=== PATIENT | male | born 1980 | race Caucasian/White ===

== ENCOUNTER 2020-11-11 12:31 | Outpatient (CLI) | payer BC, SELFPAY ==
[2020-11-11 12:47] LABS: Basophils Percent Auto 0.6 % (0.2-1.2); Eosinophils Absolute Auto 0.1 K/mm3 (0-0.3); Eosinophils Percent Auto 1.3 % (0-4.4); Hematocrit 45.8 % (42.0-52.0); Hemoglobin 15.8 g/dL (14.0-18.0); Immature Granulocyte Absolute 0.01 K/mm3 (0.00-0.031); Immature Granulocyte Percent A 0.1 % (0-0.5); Lymphocytes Absolute Auto 1.91 K/mm3 (0.9-3.2); Lymphocytes Percent Auto 27.1 % (18.3-44.2); Mean Corpuscular HGB Conc 34.5 g/dl (32-36); Mean Corpuscular Hemoglobin 29.2 pg (26-34); Mean Corpuscular Volume 84.5 fl (80-100); Monocytes Absolute Auto 0.4 K/mm3 (0.1-0.6); Monocytes Percent Auto 5.4 % (2.6-8.5); Neutrophils Absolute Auto 4.6 K/mm3 (1.3-6.7); Neutrophils Percent Auto 65.5 % (45.5-73.1); Platelet Count Result 252 k/mm3 (150-375); Red Blood Count 5.42 M/mm3 (4.6-6.20)
[2020-11-11 12:52] LABS: Blood Urea Nitrogen 16 mg/dL (8-26); Carbon Dioxide 29 mmol/L (22-30); Chloride 104 mmol/L (98-109); Estimated Glomerular Filt Rate > 60; Glucose 101 mg/dL (70-105); Potassium 3.9 mmol/L (3.5-4.9); Sodium 141 mmol/L (138-146)
[2020-11-11 16:46] LABS: Alanine Aminotransferase 32 U/L (4-50); Albumin Level 4.3 g/dL (3.5-5.1); Alkaline Phosphatase 95 U/L (38-126); Anion Gap 5 mmol/L (8-16); Aspartate Amino Transferase 24 U/L (17-59); Bilirubin,Total 0.5 mg/dL (0.2-1.3); Blood Urea Nitrogen 16 mg/dL (9-20); Calcium 9.5 mg/dL (8.4-10.2); Carbon Dioxide 28 mmol/L (22-30); Chloride 106 mmol/L (98-107); Estimated Glomerular Filt Rate > 60; Glucose 101 mg/dL (75-110); Potassium 4.3 mmol/L (3.4-5.0); Sodium 139 mmol/L (137-145)
== END 2020-11-11 12:32 | disposition home or self-care (01) ==
LOC: ANHLAB 12:33
PROVIDERS: Visit Provider Internal Medicine Hematology & Oncology
DX: D75.1 Secondary polycythemia (principal)
CPT/HCPCS: 36415; 80048; 80053; 85025

== ENCOUNTER 2023-12-14 20:51 | Emergency (ER) | payer BC, SELFPAY ==
[2023-12-14 20:54] VITALS: BP 152/104; PULSE 80; RESP 18; TEMP 36.1; O2SAT 96
--- NOTE | 2023-12-14 21:53 | ED.WOUNDLAC ---
HPI - Wound/Laceration General Chief Complaint: Wound/Laceration Stated Complaint: tongue injury Time Seen by Provider: 12/14/23 20:56 Source: patient Mode of arrival: ambulatory Limitations: no limitations History of Present Illness HPI narrative: this is a 43 year male with a history of polycythemia and is currently taking an aspirin while eating this evening bit his tongue and has a an area on the mid tongue that would stop bleeding. Otherwise no other injuries. Onset (ago): hour(s) Location: other ( bit his tongue) Place: home Related Data Home Medications Medication Instructions Recorded Confirmed cetirizine 10 mg tablet (Allergy 10 mg PO DAILY PRN allergies 08/25/22 12/14/23 Relief (cetirizine)) needle (disp) 18 G 18 gauge x 1 12/28/22 12/14/2309/26 (BD PrecisionGlide Non-Sterile) aspirin 81 mg tablet,delayed 81 mg PO DAILY 01/26/23 12/14/23 release (Adult Aspirin Regimen) Allergies Allergy/AdvReac Type Severity Reaction Status Date / Time No Known Allergies Allergy Verified 12/14/23 21:01 Review of Systems Review of Systems: All systems reviewed & are unremarkable except as noted in HPI and below PMFSH Past Medical History Medical History Secondary polycythemia (2017) Family History Family History Father A-fib Other Heart attack Social History Social History Smoking status: Current every day smoker Smokeless tobacco user: chewing tobacco Alcohol intake: current Alcohol use details: 1-2 times per month Substance use: never Substance use type: does not use Lack of Transportation: No Lack of Food: Never True Current Housing: I Have Housing Concerned About Future Housing: No Difficulty Paying Gas/Electric Bills: No Difficulty Paying for Meds: No Currently Unemployed: No Education: High School Diploma/GED Difficulty w/ Childcare or Family Care: No Exam Const: General: healthy appearing Nutritional Appearance: well nourished Orientation/consciousness: patient oriented x3 Limitations: no limitations HENMT: Head: normal to inspection Other: Small lesion on the anterior tongue currently losing blood Eyes: Conjunctivae: conjunctivae normal Chest: Chest palpation & inspection: normal inspection of the chest Resp: Effort & Inspection: normal respiratory effort Cardio: Rate: regular rate Rhythm: regular rhythm Skin: Wounds: wounds noted Course Course Emergency Course: used ice with gauze and I had patient bite down applying pressure to the anterior tongue and after reassessment currently the tongue lesion has clotted off and currently not bleeding. Vital Signs Vital signs: Vital Signs Temperature 36.1 C L 12/14/23 20:54 Pulse Rate 80 12/14/23 20:54 Respiratory Rate 18 12/14/23 20:54 Blood Pressure 152/104 H 12/14/23 20:54 Pulse Oximetry 96 12/14/23 20:54 Oxygen Delivery Room Air 12/14/23 20:54 Temperature 36.1 C L 12/14/23 20:54 Pulse Rate 80 12/14/23 20:54 Respiratory Rate 18 12/14/23 20:54 Blood Pressure 152/104 H 12/14/23 20:54 Pulse Oximetry 96 12/14/23 20:54 Oxygen Delivery Room Air 12/14/23 20:54 Critical Care Time Critical Care Time Critical Care Time: No Discharge Plan Discharge Clinical Impression: Avulsion of skin Patient Disposition: Home, Self-Care Condition: Stable Instructions: Antibiotic Form, Skin Avulsion (ED) Additional Instructions: Advised patient to hold aspirin times 24hours, and can apply pressure with gauze and ice to anterior tongue should it start to bleed once again. Prescriptions: No Action cetirizine [Allergy Relief (cetirizine)] 10 mg tablet 10 mg PO DAILY PRN (Reason: allergies) aspirin [Adult Aspirin Regimen] 81 mg tablet,delayed release (DR/EC) 81
== END 2023-12-14 22:12 | disposition home or self-care (01) ==
PROVIDERS: Emergency Provider Emergency Medicine; PCP Family Medicine Adolescent Medicine
DX: S01.552A Open bite of oral cavity, initial encounter (principal); F17.220 Nicotine dependence, chewing tobacco, uncomplicated
CPT/HCPCS: 99282

== ENCOUNTER 2024-02-25 15:39 | Emergency (ER) | payer BC, SELFPAY ==
[2024-02-25] VITALS (13 sets, daily range): BP systolic 104–135; BP diastolic 77–102; PULSE 78–97; RESP 10–18; TEMP 35.7–36.6; O2SAT 93–97
--- NOTE | ~2024-02-25 | CT_ITS ---
EXAMINATION: CTA chest PE protocol DATE: 02/25/2024 18:20 INDICATION: Shortness of breath and cough. TECHNIQUE: Computed tomography angiography (CTA) of the chest was performed with 100 mL Omnipaque-350 intravenous contrast timed to evaluate the pulmonary arteries. Coronal maximum intensity projection 3D-reconstructions were created by the technologist. Automated exposure control and iterative reconst ruction technique were employed. The dose-length product was 790.47 mGy-cm. COMPARISON: Chest CT 10/11/2017 FINDINGS: The lungs demonstrate minimal atelectasis. No pleural effusion. The heart size is normal. N o pericardial effusion. There is no pulmonary embolus. There is mild chronic anterior wedging of mult iple vertebral bodies. There is mild thoracic spondylosis. IMPRESSION: 1. No pulmonary embolus. Reviewed, dictated and finalized at location E. IMPRESSION: 1. No pulmonary embolus.
--- NOTE | ~2024-02-25 | XR_ITS ---
EXAMINATION: XR chest 2V DATE: 02/25/2024 16:32 INDICATION: Shortness of breath and cough. TECHNIQUE: Frontal and lateral views of the chest were obtained. COMPARISON: Chest CT 10/11/2017 FINDINGS: There is no pneumonia, pleural effusion, or pneumothorax. The heart size is normal. There i s mild chronic anterior wedging of multiple vertebral arteries. IMPRESSION: 1. No acute cardiopulmonary disease. Reviewed, dictated and finalized at location E.
--- NOTE | 2024-02-25 16:10 | ECG_ITS ---
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 Measurements Intervals [place] Rate: 93 P: 31 [place]: 173 QRS: 7 QRSD: 96 T: 52 QT: 342 QTc: 427 Interpretive Statements SINUS RHYTHM WITH OCCASIONAL SUPRAVENTRICULAR PREMATURE COMPLEXES NONSPECIFIC T-WAVE ABNORMALITY BORDERLINE ECG No previous ECG available for comparison Electronically Signed On 02-26-2024 07:37:14 CDT by Martinez Vallejo M.D.
--- NOTE | 2024-02-25 16:13 | ED.GENADULT ---
HPI - General Adult General Chief complaint: Unspecified Stated complaint: rash; increasing heart rate Time Seen by Provider: 02/25/24 15:57 Source: patient and family Mode of arrival: ambulatory Limitations: no limitations History of Present Illness HPI narrative: Patient is a 43-year-old male with 4 specific complaints. He is having petechia of bilateral lower extremity at the feet, traveler's diarrhea, slightly increased resting heart rate and shortness of breath. He was just vacationing in [place]. No leg swelling or pains. Minimal swelling of the feet with the petechia. No chest pain. As an aside, the patient does have polycythemia vera. He takes aspirin daily. Onset (ago): week(s) (2) Location: left, right and lower extremity ( Bilateral feet petechia while traveling in [place]) Radiation: other ( no pain) Severity: mild Severity scale (1-10): 3 Quality: constant Pain Consistency: other ( no pain) Relieving factors: none Exacerbating factors: none Associated symptoms: nausea/vomiting, shortness of breath and other ( diarrhea since [place]) Treatments prior to arrival: none Related Data Home Medications Medication Instructions Recorded Confirmed propranolol 20 mg tablet 20 mg PO QAM 02/02/24 02/25/24 rimegepant 75 mg disintegrating 75 mg PO ONCE PRN Migraine Headache 02/02/24 02/25/24 tablet (Nurtec ODT) Allergies Allergy/AdvReac Type Severity Reaction Status Date / Time No Known Allergies Allergy Verified 02/02/24 08:11 Review of Systems Review of Systems: All systems reviewed & are unremarkable except as noted in HPI and below Constitutional: Constitutional: Reports no additional constitutional complaints Eyes: Eyes: Reports no additional eye complaints ENT: Reports system reviewed and no additional complaints, except as documented Cardiovascular: Cardiovascular: Reports no additional cardiovascular complaints Respiratory: Respiratory: Reports no additional respiratory complaints Gastrointestinal: Gastrointestinal: Reports no additional gastrointestinal complaints Genitourinary: Genitourinary: Reports no additional male genitourinary complaints Musculoskeletal: Musculoskeletal: Reports no additional musculoskeletal complaints Integumentary/Breasts: Skin/Breast: Reports system reviewed and no additional complaints, except as docu Neurologic: Reports system reviewed and no additional complaints, except as documented Psychiatric: Psychiatric: Reports no additional psychiatric complaints Endocrine: Endocrine: Reports no additional endocrine complaints Hematologic/Lymphatic: Hematologic/Lymphatic: Reports no additional hematologic/lymphatic complaints Allergic/Immunologic: Allergic/Immunologic: Reports no additional allergic/immunologic complaints PMF Past Medical History Medical History Secondary polycythemia (2017) Family History Family History Father A-fib Other Heart attack Social History Social History Smoking status: Current every day smoker Smokeless tobacco user: chewing tobacco Alcohol intake: current Alcohol use details: 1-2 times per month Substance use: never Substance use type: does not use Lack of Transportation: No Lack of Food: Never True Current Housing: I Have Housing Concerned About Future Housing: No Difficulty Paying Gas/Electric Bills: No Difficulty Paying for Meds: No Currently Unemployed: No Education: High School Diploma/GED Difficulty w/ Childcare or Family Care: No Exam Const: General: cooperative, healthy appearing and comfortable HENMT: Head: normal to inspection, No palpable skull fracture present and normocephalic Mouth: Yes Normal oral and palatal mucosa present, Yes lip normal and Yes tongue normal Throat: posterior oropharynx normal, tonsils no
[2024-02-25] MEDS: AZITHROMYCIN 250 MG TABLET 1000 MG PO (16:40)
[2024-02-25 17:13] LABS: Basophils Absolute Auto 0.02 K/mm3 (0.00-0.10); Basophils Percent Auto 0.4 % (0.0-1.0); Eosinophils Absolute Auto 0.06 K/mm3 (0.02-0.50); Eosinophils Percent Auto 1.1 % (1.0-6.0); Hematocrit 46.6 % (40.0-54.0); Hemoglobin 15.7 g/dL (14.0-18.0); Immature Granulocyte Absolute 0.02 K/mm3 (0.00-0.00); Immature Granulocyte Percent A 0.4 % (0.0-0.0); Lymphocytes Absolute Auto 1.25 K/mm3 (1.10-4.50); Lymphocytes Percent Auto 23.1 % (18.0-42.0); Mean Corpuscular HGB Conc 33.7 g/dL (32-36); Mean Corpuscular Hemoglobin 28.9 pg (27.0-31.0); Mean Corpuscular Volume 85.7 fL (78.0-102.0); Mean Platelet Volume 10.1 fl (8.7-11.0); Monocytes Absolute Auto 0.56 K/mm3 (0.10-0.90); Monocytes Percent Auto 10.4 % (2.0-11.0); Neutrophils Absolute Auto 3.49 K/mm3 (1.70-7.20); Neutrophils Percent Auto 64.6 % (50.0-70.0); Platelet Count Result 159 K/mm3 (150-420); Red Blood Count 5.44 M/mm3 (4.70-6.10); Red Cell Distribution Width 14.1 % (11.6-14.4); White Blood Count 5.4 K/mm3 (4.8-10.8)
[2024-02-25 17:28] LABS: Partial Thromboplastin Time 27.1 Sec (23.9-30.70); Prothrombin Time 10.7 Seconds (9.50-12.1)
[2024-02-25 17:33] LABS: Alanine Aminotransferase 35 U/L (16-63); Albumin Level 3.3 g/dL (3.4-5.0); Alkaline Phosphatase 98 U/L (46-116); Anion Gap 7 mmol/L (4-12); Aspartate Amino Transferase 17 U/L (15-37); Bilirubin,Total 0.6 mg/dL (0.00-1.00); Blood Urea Nitrogen 11 mg/dL (7-18); Calcium 8.9 mg/dL (8.5-10.1); Carbon Dioxide 31 mmol/L (21-32); Chloride 100 mmol/L (98-108); Estimated CRCL calculation 109 ml/min; Estimated Glomerular Filt Rate > 60; Glucose 114 mg/dL (70-99); Magnesium 2.1 mg/dL (1.8-2.4); Osmolality Calculated 286 mOsm/kg (285-295); Potassium 3.7 mmol/L (3.5-5.1); Sodium 138 mmol/L (136-145); Total Protein 7.3 g/dL (6.4-8.2)
[2024-02-25 17:35] LABS: D Dimer 0.97 mg/L (0.19-0.50)
--- NOTE | 2024-02-25 18:32 | PC.NURSE ---
Dr Perkins discussed w/ pt about need for Lovenox injection and need to return in AM for venous doppler as o/p. Pt VSS, order will be given for pt to return tomorrow.
--- NOTE | 2024-02-25 18:45 | ED.GENADULT ---
HPI - General Adult General Chief complaint: Unspecified Stated complaint: rash; increasing heart rate Time Seen by Provider: 02/25/24 15:57 Source: patient and family Mode of arrival: ambulatory Limitations: no limitations History of Present Illness Location: left, right and lower extremity ( Bilateral feet petechia while traveling in [place]) Severity scale (1-10): 3 Quality: constant Relieving factors: none Exacerbating factors: none Associated symptoms: nausea/vomiting, shortness of breath and other ( diarrhea since [place]) Treatments prior to arrival: none Related Data Home Medications Medication Instructions Recorded Confirmed propranolol 20 mg tablet 20 mg PO QAM 02/02/24 02/25/24 rimegepant 75 mg disintegrating 75 mg PO ONCE PRN Migraine Headache 02/02/24 02/25/24 tablet (Nurtec ODT) Allergies Allergy/AdvReac Type Severity Reaction Status Date / Time No Known Allergies Allergy Verified 02/02/24 08:11 [facility] Past Medical History Medical History Secondary polycythemia (2017) Family History Family History Father A-fib Other Heart attack Social History Social History Smoking status: Current every day smoker Smokeless tobacco user: chewing tobacco Alcohol intake: current Alcohol use details: 1-2 times per month Substance use: never Substance use type: does not use Lack of Transportation: No Lack of Food: Never True Current Housing: I Have Housing Concerned About Future Housing: No Difficulty Paying Gas/Electric Bills: No Difficulty Paying for Meds: No Currently Unemployed: No Education: High School Diploma/GED Difficulty w/ Childcare or Family Care: No Course Vital Signs Vital signs: Vital Signs Temperature 35.7 C L 02/25/24 15:39 Pulse Rate 97 02/25/24 15:39 Respiratory Rate 16 02/25/24 15:39 Blood Pressure 135/102 H 02/25/24 15:39 Pulse Oximetry 95 02/25/24 15:39 Oxygen Delivery Room Air 02/25/24 15:39 Temperature 35.7 C L 02/25/24 15:39 Pulse Rate 87 02/25/24 18:30 Respiratory Rate 17 02/25/24 18:30 Blood Pressure 104/77 02/25/24 17:31 Pulse Oximetry 95 02/25/24 18:30 Oxygen Delivery Room Air 02/25/24 15:39 Medical Decision Making Vital Signs Vital Signs: Vital Signs Temperature 35.7 C L 02/25/24 15:39 Pulse Rate 97 02/25/24 15:39 Respiratory Rate 16 02/25/24 15:39 Blood Pressure 135/102 H 02/25/24 15:39 Pulse Oximetry 95 02/25/24 15:39 Oxygen Delivery Room Air 02/25/24 15:39 Temperature 35.7 C L 02/25/24 15:39 Pulse Rate 87 02/25/24 18:30 Respiratory Rate 17 02/25/24 18:30 Blood Pressure 104/77 02/25/24 17:31 Pulse Oximetry 95 02/25/24 18:30 Oxygen Delivery Room Air 02/25/24 15:39 Lab Data 02/25/24 16:48 02/25/24 16:48 Labs: Lab Results 02/25/24 Range/Units 16:48 WBC 5.4 (4.8-10.8) K/mm3 RBC 5.44 (4.70-6.10) M/mm3 Hgb 15.7 (14.0-18.0) g/dL Hct 46.6 (40.0-54.0) % MCV 85.7 (78.0-102.0) fL MCH 28.9 (27.0-31.0) pg MCHC 33.7 (32-36) g/dL RDW 14.1 (11.6-14.4) % Plt Count 159 (150-420) K/mm3 MPV 10.1 (8.7-11.0) fl Immature Gran % (Auto) 0.4 H (0.0-0.0) % Neut % (Auto) 64.6 (50.0-70.0) % Lymph % (Auto) 23.1 (18.0-42.0) % Castro % (Auto) 10.4 (2.0-11.0) % Eos % (Auto) 1.1 (1.0-6.0) % Baso % (Auto) 0.4 (0.0-1.0) % Lymph # (Auto) 1.25 (1.10-4.50) K/mm3 Castro # (Auto) 0.56 (0.10-0.90) K/mm3 Eos # (Auto) 0.06 (0.02-0.50) K/mm3 Baso # (Auto) 0.02 (0.00-0.10) K/mm3 Abs Immat Gran (auto) 0.02 H (0.00-0.00) K/mm3 Absolute Neuts (auto) 3.49 (1.70-7.20) K/mm3 Absolute Nucleated RBC 0.00 (0.00-0.00) K/mm3 Nucleated RBC % 0.0 (0-0.0) % PT 10.7 (9.50-12.1) Seconds INR 1.0 APTT 27.1 (23.9-30.70
[2024-02-25] MEDS: ENOXAPARIN 120 MG/0.8 ML SYRINGE SUB-Q (18:47)
== END 2024-02-25 19:00 | disposition home or self-care (01) ==
PROVIDERS: Emergency Provider Emergency Medicine; PCP Family Medicine Adolescent Medicine
DX: R19.7 Diarrhea, unspecified (principal); R06.02 Shortness of breath; R60.0 Localized edema; R23.3 Spontaneous ecchymoses; D45 Polycythemia vera; F17.220 Nicotine dependence, chewing tobacco, uncomplicated
CPT/HCPCS: 36415; 71046; 71275; 80053; 83735; 84484; 85025; 85380; 85610; 85730; 93005; 96372; 99284; A9270; J1650; Q9967

== ENCOUNTER 2024-02-26 08:29 | Outpatient (CLI) | payer BC, SELFPAY ==
--- NOTE | ~2024-02-26 | US_ITS ---
EXAMINATION: US venous doppler [facility] DATE: 02/26/2024 08:54 INDICATION: Right lower limb localized edema. TECHNIQUE: Grayscale ultrasound images without and with compression and Doppler ultrasound images of the bilateral lower extremity veins were obtained. COMPARISON: None. FINDINGS: The visualized portions of right common femoral vein, profunda (deep) femoral vein, femoral vein, pop liteal vein, peroneal veins, posterior tibial veins, and greater saphenous vein outflow are patent. The visualized portions of left common femoral vein, profunda femoral vein, femoral vein, popliteal v ein, peroneal veins, posterior tibial veins, and greater saphenous vein outflow are patent. IMPRESSION: 1. No deep venous thrombosis. Reviewed, dictated and finalized at location A.
== END 2024-02-26 08:30 | disposition home or self-care (01) ==
LOC: CHSIMG 08:32
PROVIDERS: PCP Family Medicine Adolescent Medicine; Visit Provider Emergency Medicine
DX: R60.0 Localized edema (principal)
CPT/HCPCS: 93970

== ENCOUNTER 2024-07-04 08:46 | Outpatient (CLI) | payer BC, SELFPAY ==
--- NOTE | 2024-07-04 08:51 | ECHO_ITS ---
Patient Info Name: Umberto Garcia Age: 43 years : 1980 Gender: Male Ht: 70 in Wt: 245 lbs BSA: 2.38 m2 HR: 80 bpm BP: 141 / 94 mmHg Technical Quality: Good Exam Date: 07/04/2024 8:59 AM Exam Location: Echo Lab Patient Status: Outpatient Admit Date: 07/04/2024 Staff Ordering Physician: Tolu Franco DO Case Management Manager: Shannan Yin RDCS Attending Provider: Tolu Franco DO Referring Physician: Salvador DYKES; Exam Type: CA echo doppler color flow Study Info Indications I48.0 - Paroxysmal atrial fibrillation Complete two-dimensional, color flow and Doppler transthoracic echocardiogram is performed. Strain analysis performed. Summary 1. Complete two-dimensional, color flow and Doppler transthoracic echocardiogram is performed. 2. Left ventricular chamber dimension is normal. 3. Left ventricular systolic function is normal, estimated at 60-65%. 4. The left ventricular diastolic function is normal. 5. E/e' 6 is not elevated. 6. Global longitudinal strain is abnormal at -14.1%. 7. There is trace tricuspid valve regurgitation. 8. No pulmonary hypertension, estimated pulmonary arterial systolic pressure is 25 mmHg. Left Ventricle E/e' 6 is not elevated. Global longitudinal strain is abnormal at -14.1%. Left ventricular chamber dimension is normal. Left ventricular systolic function is normal, estimated at 60-65%. The left ventricular diastolic function is normal. Right Ventricle Right ventricular chamber dimension is normal. Right ventricular systolic function is normal. Left Atria Left atrial chamber dimension is normal. Right Atria Right atrial chamber dimension is normal. Aortic Valve The aortic valve is trileaflet. There is no aortic valve stenosis. There is no aortic valve regurgitation. Pulmonic Valve There is no pulmonic regurgitation. Mitral Valve There is no mitral valve stenosis. There is no mitral valve regurgitation. Tricuspid Valve There is trace tricuspid valve regurgitation. No pulmonary hypertension, estimated pulmonary arterial systolic pressure is 25 mmHg. Pericardium/Pleural There is no pericardial effusion. Inferior Vena Cava Normal inferior vena cava with >50% collapse upon inspiration consistent with normal right atrial pressure, 5 mmHg. Aorta The aortic root size at the sinus of Valsalva is normal. Left Ventricular Outflow Tract Name Value Normal LVOT 2D LVOT Diameter 2.0 cm LVOT Doppler LVOT Peak Gradient 6 mmHg LVOT Mean Gradient 3 mmHg LVOT VTI 22 cm LVOT VTI/AV VTI Ratio 1.0 LVOT Stroke Volume 69 ml LVOT CO 5.4 l/min LVOT CI 2.3 l/min/m2 Pulmonic Valve Name Value Normal RVOT Doppler RVOT Peak Gradient 2 mmHg PV Doppler
--- NOTE | 2024-07-04 08:51 | EST_ITS ---
Patient Info Name: Umberto Garcia Age: 43 years : 1980 Gender: Male Ht: 70 in Wt: 245 lbs BSA: 2.38 m2 HR: 70 bpm BP: 122 / 78 mmHg Heart Rhythm: Sinus Rhythm Exam Date: 07/04/2024 9:52 AM Exam Location: Echo Lab Patient Status: Outpatient Admit Date: 07/04/2024 Staff Ordering Physician: Tolu Franco DO Attending Provider: Tolu Franco DO Exercise Technologist: Sana Onofre CT Exercise Physician: Tolu Franco DO Exam Type: CA stress test treadmill Study Info Indications I48.0 - Paroxysmal atrial fibrillation A treadmill exercise stress test was performed. Summary 1. 1. Negative John exercise stress test for ischemic ST changes by ECG criteria. 2. 2. Good functional capacity, achieving 10 METs of workload. 3. 3. Appropriate HR response to exercise. 4. 4. Appropriate HR recovery at 1 minute post exercise. 5. 5. No imaging with stress testing. 6. 6. Patient informed of the above results. Protocol: John Rest HR: 77 bpm Peak HR: 155 bpm Rest Sys BP: 122 mmHg Peak Sys BP: 159 mmHg Max Pred HR: 175 bpm % Max Pred HR: 89 % Target HR: 149 bpm Max RPP: 24,645 bpm*mmHg Termination Reason: Reached target heart rate or workload Cardiac Symptoms: Shortness of breath Total Time: 9 min : 0 sec Rest Calvillo BP: 78 mmHg Peak Calvillo BP: 82 mmHg Total METS: 10.0 Resting ECG Sinus rhythm. Stress ECG No ST changes. Arrhythmias None. Report Signatures
== END 2024-07-04 08:47 | disposition home or self-care (01) ==
LOC: ANHCARD 08:49
PROVIDERS: PCP Family Medicine Adolescent Medicine; Visit Provider Internal Medicine Cardiovascular Disease
DX: I48.0 Paroxysmal atrial fibrillation (principal)
CPT/HCPCS: 93017; 93306

== ENCOUNTER 2024-07-15 12:26 | Outpatient (CLI) | payer BC, SELFPAY ==
--- NOTE | 2024-07-15 12:29 | ECG_ITS ---
Test Date: 2024-07-15 12:38:55 Measurements Intervals [place] Rate: 78 P: 37 NM: 164 QRS: 26 QRSD: 106 T: 37 QT: 382 QTc: 436 Interpretive Statements SINUS RHYTHM MINIMAL VOLTAGE CRITERIA FOR LVH, CONSIDER NORMAL VARIANT [MEETS CRITERIA IN ONE OF: R(aVL), S(V1), R(V5), R(V5/V6)+S(V1)] Compared to ECG 02/25/2024 16:19:20 T-wave abnormality no longer present Electronically Signed On 07-16-2024 09:35:28 CDT by Pooja Avila M.D.
== END 2024-07-15 12:27 | disposition home or self-care (01) ==
LOC: CHSCARD 12:27
PROVIDERS: PCP Family Medicine Adolescent Medicine; Visit Provider Internal Medicine Cardiovascular Disease
DX: I48.0 Paroxysmal atrial fibrillation (principal)
CPT/HCPCS: 93005

== ENCOUNTER 2025-07-21 14:45 | Outpatient (CLI) | payer BC, SELFPAY ==
--- NOTE | 2025-07-21 14:47 | ECG_ITS ---
Test Date: 2025-07-21 14:59:26 Measurements Intervals [place] Rate: 75 P: 43 [place]: 200 QRS: 42 QRSD: 102 T: 55 QT: 379 QTc: 424 Interpretive Statements SINUS RHYTHM NORMAL ECG Compared to ECG 07/15/2024 12:38:55 No significant changes Electronically Signed On 07-21-2025 16:41:52 CDT by Tolu Franco D.O.
--- OUTSIDE RECORDS SUMMARY | 2025-07-21 16:25 | XMS_ITS | Encounter Summary ---
Author Organization [facility] Address [address] [place] [address] Care Team Providers Care Irrigation Technician Name Role Phone Colin Noguera MD Primary Care Provider [phone] Encounter Details Date Type Department Care Team (Latest Contact Info) Description 11/08/2024 MyChart Message Enc [facility] Medical [facility] - [facility] [address] [facility], [address] [place] [address] Jamie Schroeder MD [address] [place] [address] Did we check for CTE? Social History Tobacco Use Types Packs/Day Years Used Date Smoking Tobacco: Former Cigarettes Smokeless Tobacco: Never Alcohol Use Standard Drinks/Week Comments Yes 0 (1 standard drink = 0.6 oz pur e alcohol) occassionally PHQ-2 Answer Date Recorded Patient Health Questionnaire-2 Score 0 08/21/2023 Sex and Gender Information Value Date Recorded Sex Assigned at Not on file Legal Sex Male 3:09 PM CDT Gender Identity Not on file Sexual Orientation Not on file documented as of this encounter Plan of Treatment Not on file documented as of this encounter Visit Diagnoses Not on filedocumented in this encounter Care Teams Irrigation Technician Relationship Specialty Start Date End Date Colin Noguera MD [address] [id number] PCP - General FAMILY PRACTICE 01/30/23 documented as of this encounter
--- OUTSIDE RECORDS SUMMARY | 2025-07-21 16:25 | XMS_ITS | Encounter Summary ---
Author Organization [facility] Healthcare Address [address] [place] [address] Care Team Providers Care Dermatology Teacher Name Role Phone Colin Noguera MD Primary Care Prov ider Jamie Schroeder MD Unavailable [phone] Encounter Details Date Type Department Care Team (Late st Contact Info) Description 01/08/2017 Orders Only [facility] Information [facility] [address] [place] [id number] Scanning, Provider Social History Tobacco Use Types Packs/Day Years Used Date Smoking Tobacco: Never Assessed Sex and Gender Information Value Date Recorded Sex Assigned at Not on file Legal Sex Male 2:40 AM CDT Gender Identity Male 10/06/2023 7:56 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 Sexual Orientation Straight 10/06/2023 7 :56 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 documented as of this encounter Plan of Treatment Not on file documented as of this encounter Procedures Procedure Name Priority Date/Time Associated Diagnosis Comments CARDIOLOGY DOCUMENT SCAN 01/08/2017 documented in this encounter Results * Cardiology Document Scan (01/08/2017) Anatomical Region Laterality Modality Other us Provider Scanning CV CARDIAC SERVICES PROCEDURES Final Result documented in this encounter Visit Diagnoses Not on filedocumented in this encounter Care Teams Dermatology Teacher Relationship Specialty Start Date End Date Colin Noguera MD PCP - General Family Medicine 02/06/18 Jamie Schroeder MD [address] [place] [address] Referring Physician Neurology 06/16/23 documented as of this encounter
--- OUTSIDE RECORDS SUMMARY | 2025-07-21 16:25 | XMS_ITS | Clinical Summary ---
Author Organization [facility] al Address [address] [place] [address] Care Team Providers Care Colorer Name Role Phone Colin Noguera MD Primary Care Prov ider Jamie Schroeder MD Unavailable [phone] Allergies No known active allergies Medications aspirin 325 mg tablet Take 325 mg by mouth. Active albuterol HFA (PROVENTIL HFA,VENTOLIN HFA) 90 mcg/actuation inhaler Inhale 2 puffs every 6 hours as needed. Active Nurtec ODT tablet,disintegr ating TAKE 1 TABLET (75 MG TOTAL) BY MOUTH NEEDED. MAX OF 1 TABLET (75 MG) IN 24 HOURS. Active Active Problems Problem Noted Date Diagnosed Date Vestibular migraine 10/06/2023 Vertigo 10/06/2023 Erythrocytosis 12/01/2016 Family History Medical History Relation Name Comments Esophageal cancer Brother Family his tory of malignant neoplasm of esophagus - (Added by TW Conv) Relation Name Status Comments Brother Social History Tobacco Use Types Packs/Day Years Used Date Smoking Tobacco: Some Days Smokeless Tobacco: Current Alcohol Use Standard Drinks/Week Comments Yes 0 (1 standard drink = 0.6 oz pur e alcohol) social drinker Sex and Gender Information Value Date Recorded Sex Assigned at Not on file Legal Sex Male 2:40 AM CDT Gender Identity Male 10/06/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 Sexual Orientation Straight 10/06/2023 7: 56 AM CRYSTALIZER OPERATOR Obstetrics History Last Filed Vital Signs Vital Sign Reading Time Taken Comments Blood Pressure 120/74 03/21/2018 2:41 PM CDT Pulse 80 03/21/2018 2:41 PM CDT Temperature - - Respiratory Rate - - Oxygen Saturation 97% 03/21/2018 2:41 PM CDT Inhaled Oxygen Concentration - - Weight 111.6 kg (246 lb) 03/21/2018 2:41 PM CDT Height 177.8 cm (5' 10) 03/21/2018 2:41 PM CDT Body Mass Index 35.3 03/21/2018 2:41 PM CDT Plan of Treatment Health Maintenance Due Date Last Done Comments Colon Cancer Screening-Colonoscopy 1978 Depression Screening 1978 Hepatitis C Screening 1978 DTaP/Tdap/Td Vaccine (1 - Tdap) 1989 Hepatitis B Screening 1996 Regular Well Visit/Exam 18-64 1996 Pneumococcal vaccine <65 (1 of 2 - PCV) 1997 Influenza Vaccine (#1) 2025 HPV Vaccines Aged Out No longer eligi ble based on patient's age to complete this topic Insurance [facility] [employer] CHOICE ANTH ACCESS CHOICE Care Teams Colorer Relationship Specialty Start Date End Date Colin Noguera MD PCP - General Family Medicine 02/06/18 Jamie Schroeder MD [address] [place] [address] Referring Physician Neurology 06/16/23
--- OUTSIDE RECORDS SUMMARY | 2025-07-21 16:25 | XMS_ITS | Clinical Summary ---
Author Organization [facility] Address [address] [place] [address] Care Team Providers Care School Counselor Name Role Phone Colin Noguera MD Primary Care Provider [phone] Allergies No known active allergies Medications aspirin (RAISA) 325 mg tablet Take 325 mg by mouth daily. Active cetirizine (ZyrTEC) 10 mg tablet Take 10 mg by mouth daily. Active testosterone cypionate (DEPO-TESTOSTER ONE) 200 mg/mL Oil INJECT 0.5 MILLILITER INTO MUSCLE ONCE A SINGLE DOSE 2 Active Active Problems Problem Noted Date Diagnosed Date Itching 11/11/2020 Erythrocytosis 10/06/2017 Tobacco use 10/06/2017 Family History Medical History Relation Name Comments Cancer Brother Cancer Mother Relation Name Status Comments Brother Alive Father Alive Mother Alive Social History Tobacco Use Types Packs/Day Years Used Date Smoking Tobacco: Former Cigarettes 0.5 28 0 03/16/1990 - 03/16/2018 Cigars Smokeless Tobacco: Current Snuff Tobacco Cessation:Ready to Q uit: Not Asked; Counseling Given: Not Answered Alcohol Use Standard Drinks/Week Comments Yes 0 (1 standard drink = 0.6 oz pur e alcohol) once or twice a month, yael Sex and Gender Information Value Date Recorded Sex Assigned at Not on file Legal Sex Male 3:02 PM RESEARCH DIETITIAN Gender Identity Not on file Sexual Orientation Not on file Last Filed Vital Signs Vital Sign Reading Time Taken Comments Blood Pressure 138/88 10/28/2022 8:29 AM RESEARCH DIETITIAN Pulse 84 10/28/2022 8:26 AM RESEARCH DIETITIAN Temperature 36.6 C (97.8 F) 10/28/2022 8:26 AM RESEARCH DIETITIAN Respiratory Rate 16 10/28/2022 8:26 AM RESEARCH DIETITIAN Oxygen Saturation 97% 10/28/2022 8:26 AM RESEARCH DIETITIAN Inhaled Oxygen Concentration - - Weight 121.9 kg (268 lb 11.2 oz) 10/28/2022 8:26 AM RESEARCH DIETITIAN Height 180.3 cm (5' 11) 11/11/2021 1:31 PM RESEARCH DIETITIAN Body Mass Index 37.48 11/11/2021 1:31 PM RESEARCH DIETITIAN Plan of Treatment Health Maintenance Due Date Last Done Comments DTAP/TDAP/TD VACCINES (1 - Tdap) 1997 HEPATITIS B VACCINES (1 of 3 - 19+ 3-dose series) 1997 COLORECTAL SCREENING 2023 Colorectal Cancer Screening 2023 FIT-DNA Q 3 years 2023 FIT/FOBT Q 1 year 2023 Flex Sig/CT Colonography Q 5 years 2023 INFLUENZA VACCINE (#1) 2025 HPV VACCINES Aged Out No longer eligi ble based on patient's age to complete this topic Insurance [facility] BLUE ACCESS CHOICE Care Teams School Counselor Relationship Specialty Start Date End Date Colin Noguera MD PCP - General Family Practice 09/11/17
--- OUTSIDE RECORDS SUMMARY | 2025-07-21 16:25 | XMS_ITS | Clinical Summary ---
Author Organization [facility] Address [address] [place] [address] Care Team Providers Care Wooden Tank Erector Name Role Phone Colin Noguera MD Primary Care Provider + Source Comments [facility],non-owned Affiliates and Associated Physician Practices is amultiple site organization consisting of ambulatory clinics and hospital sitesin [place], [place], [place] and [place]. This disclosure is being madepursuant to the Care Everywhere program and may not contain all information available regarding this patient. Last updated 18.[facility] Allergies No known active allergies Medications * Be aware that medications may not be up to date on this document. Alwaysverify current medications with the patient. 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 Gender Identity Not on file Sexual Orientation Not on file Last Filed Vital Signs Vital Sign Reading Time Taken Comments Blood Pressure 148/96 09/25/2016 3:07 PM LEGISLATIVE ADVOCATE Pulse 90 09/25/2016 3:07 PM LEGISLATIVE ADVOCATE Temperature 36.7 C (98.1 F) 09/25/2016 2:44 PM LEGISLATIVE ADVOCATE Respiratory Rate - - Oxygen Saturation 93% 09/25/2016 2:44 PM LEGISLATIVE ADVOCATE Inhaled Oxygen Concentration - - Weight 104.3 kg (230 lb) 09/25/2016 2:44 PM LEGISLATIVE ADVOCATE Height 180.3 cm (5' 11) 09/25/2016 2:44 PM LEGISLATIVE ADVOCATE Body Mass Index 32.08 09/25/2016 2:44 PM LEGISLATIVE ADVOCATE Plan of Treatment Health Maintenance Due Date Last Done Comments COLOGUARD (AGES 45-75) - COL ON CA SCREENING 1978 COLON MONITORING 1978 COLONOSCOPY - COLON CA SCREENING 1978 CT COLONOGRAPHY - COLON CA SCREENING 1978 Colorectal Cancer Screening 1978 FIT - COLON CA SCREENING 1978 FLEX SIG - COLON CA SCREENING 1978 LIPID TESTING 1978 HIV SCREENING 1993 HEPATITIS C SCREENING 09/06/1996 DTAP/TDAP/TD VACCINES (1 - Tdap) 1997 HEPATITIS B VACCINE (1 of 3 - 19+ 3-dose series) 1997 DEPRESSION SCREENING 09/25/2024 COVID-19 VACCINE (1 - 2023-2 5 season) 2025 INFLUENZA VACCINE (#1) 2025 ZOSTER VACCINE (1 of 2) 2028 HIB VACCINE Aged Out No longer eligi ble based on patient's age to complete this topic HPV VACCINE Aged Out No longer eligi ble based on patient's age to complete this topic MENINGOCOCCAL (Group B) VACC INE SHARED DECISION-MAKING Aged Out No longer eligibl e based on patient's age to complete this topic MENINGOCOCCAL GROUPS A/C/Y/W VACCINE Aged Out No longer eligible b ased on patient's age to complete this topic PNEUMOCOCCAL VACCINE Aged Out No long er eligible based on patient's age to complete this topic Insurance [facility] Care Teams Wooden Tank Erector Relationship Specialty Start Date End Date Colin Noguera MD [address] [address] PCP - General Family Medicine 09/25/16
--- OUTSIDE RECORDS SUMMARY | 2025-07-21 16:25 | XMS_ITS | Clinical Summary ---
Author Organization [facility] Address [address] [place] [address] Care Team Providers Care Cost Report Clerk Name Role Phone Colin Noguera MD Primary Care Provider [phone] Medications ubrogepant (UBRELVY) 100 MG tabletIndications :Migraine without aura, not intractable, without status migrainosus Take 1 tablet (100 mg total) by mouth 2 (two) times daily as needed for Migraine. 16 tablet 06/11/20 23 Active aspirin 325 MG tablet Take 1 tablet (325 mg total) by mouth daily. Active propranolol LA (INDERAL LA) 80 MG 24 hr capsule Take 1 capsule (80 mg total) by mouth daily. 08/16/20 23 Active propranolol (INDERAL) 20 MG tablet TAKE 1 TABLET BY MOUTH DAILY (ADD TO 80MG) 08/15/20 Active testosterone cypionate (DEPO TESTOSTERONE) 200 MG/ML injection INJECT 1ML (200 MG) INTRAMUSCULARLY EVERY 2 WEEKS A SINGLE DOSE Active B-D 3CC LUER-JEFFY SYR 22GX1 22G X 1 3 ML Misc USE ONE EVERY 2 WEEKS TO INJECT TESTOSTERONE 08/16/20 23 Active B-D 3CC LUER-JEFFY SYR 84UD7-9/2 21G X 1-1/2 3 ML Misc FOR E29.1 USE TO INJECT TESTOSTERONE ONCE EVERY TWO WEEKS 12/29/19 23 Active rimegepant (NURTEC) 75 MG disintegrating tabletIndications :Migraine without aura, not intractable, without status migrainosus Take 1 tablet (75 mg total) by mouth as needed. Max of 1 tablet (75 mg) in 24 hours. 16 tablet 11 08/21/20 23 Active Active Problems No known active problems Social History Tobacco Use Types Packs/Day Years Used Date Smoking Tobacco: Former Cigarettes Smokeless Tobacco: Never Tobacco Cessation:Counseling Given: Yes Alcohol Use Standard Drinks/Week Comments Yes 0 [...] Sign Reading Time Taken Comments Blood Pressure 146/89 08/21/2023 8:27 AM K 12 PRINCIPAL Pulse 80 08/21/2023 8:27 AM K 12 PRINCIPAL Temperature 36.7 C (98.1 F) 08/21/2023 8:27 AM K 12 PRINCIPAL Respiratory Rate 18 08/21/2023 8:27 AM K 12 PRINCIPAL Oxygen Saturation 98% 08/21/2023 8:27 AM K 12 PRINCIPAL Inhaled Oxygen Concentration - - Weight 120 kg (264 lb 8 oz) 08/21/2023 8:[address] Height 180.3 cm (5' 11) 08/21/2023 8:27 AM K 12 PRINCIPAL Body Mass Index 36.89 08/21/2023 8:27 AM K 12 PRINCIPAL Plan of Treatment Health Maintenance Due Date Last Done Comments Colorectal Cancer Screening Colonoscopy (10 Years) 1978 Annual Physical 1981 Hepatitis C 1996 DTaP, Tdap and Td Vaccines ( 1 - Tdap) 1997 Hepatitis B Vaccines (1 of 3 - 19+ 3-dose series) 1997 PHQ-2 (Physician Grayling) 09/25/2024 08/21/2023 COVID-19 Vaccine (1 - 2024-2 6 season) 2025 Influenza Adult (#1) 2025 Hepatitis A Vaccines Aged Out No long er eligible based on patient's age to complete this topic Meningococcal B Vaccine Aged Out No l onger eligible based on patient's age to complete this topic Meningococcal Vaccine Aged Out No nori dio eligible based on patient's age to complete this topic Pneumococcal Vaccine: Pediat rics (0 to 5 Years) and At-Risk Patients (6 to 49 Years) Aged Out No longer eligi ble based on patient's age to complete this topic RSV Immunizations Under 20 Months Aged Out No longer eligible based on patient's age to complete this topic Insurance [facility] Care Teams Cost Report Clerk Relationship Specialty Start Date End Date Colin Noguera MD [address] [address] PCP - General FAMILY PRACTICE 01/30/23
== END 2025-07-21 14:46 | disposition home or self-care (01) ==
LOC: CHSCARD 14:46
PROVIDERS: PCP Family Medicine Adolescent Medicine; Visit Provider Internal Medicine Cardiovascular Disease
DX: I48.0 Paroxysmal atrial fibrillation (principal)
CPT/HCPCS: 93005